=== PATIENT | female | born 2000 | race Caucasian/White ===

== ENCOUNTER 2023-02-16 19:27 | Inpatient (IN) | payer OTHER, MEDICAID, SELFPAY ==
[2023-02-16 19:35] VITALS: BP 123/80; PULSE 104; RESP 18; TEMP 36.8; O2SAT 98; BMI 22.9
--- NOTE | 2023-02-16 19:44 | ED_ITS ---
HPI - General Adult General Chief complaint: Psychiatric Symptoms Stated complaint: phys eval? Time Seen by Provider: 02/16/23 20:11 Source: patient Mode of arrival: ambulatory History of Present Illness HPI narrative: 22-year-old female who is a student at [employer] and currently visiting at home, comes in with cutting after a recent break-up. Patient has thoughts of self-harm and states that this is not the 1st time that she has cut or have thoughts of self-harm. She denies any AVH. Patient states that she has a local psychiatrist and is on medications but has difficulty bridging the distance when she is away at college. Her family encouraged her to present here for further evaluation. Related Data Home Medications Medication Instructions Recorded Confirmed aripiprazole 5 mg tablet 5 mg PO DAILY 02/16/23 02/16/23 dexmethylphenidate 5 mg 5 mg PO QAM 02/16/23 02/16/23 capsule,extended release -04 dexmethylphenidate 5 mg tablet 5 mg PO BID PRN Agitation 02/16/23 02/16/23 drospirenone 3 mg-ethinyl 1 tab PO DAILY 02/16/23 02/16/23 estradiol 0.03 mg tablet (Ewa) propranolol 10 mg tablet 10 mg PO BID 02/16/23 02/16/23 venlafaxine 150 mg 150 mg PO DAILY 02/16/23 02/16/23 capsule,extended release 24 hr Allergies Allergy/AdvReac Type Severity Reaction Status Date / Time minocycline Allergy Hives Verified 02/16/23 19:46 Review of Systems 2 Review of Systems: Pertinent positives and negatives as stated in the [facility] Past Medical History Source: nursing notes reviewed Onset Date is defined in the Problem List Problems that require an onset date and time if occurred within 24 hrs of arrival to the ED Aortic Dissection and Rupture; Neurologic impairment; Cardiopulmonary Arrest; Endotracheal Intubation; Insertion or Replacement of Mechanical Circulatory Assist Device Social History Social History Advance Directives: No Advance Directives Information Provided: No Healthcare Proxy: No Guardian: No Physical Exam ED Vital Signs: Vital Signs - 24 hr 02/16/23 19:35 02/17/23 06:36 Temperature 98.2 F 98.3 F Pulse Rate 104 H 92 Respiratory Rate 18 15 Blood Pressure 123/80 112/72 Pulse Oximetry 98 99 Oxygen Delivery Method Room Air Room Air BMI result Body Mass Index 22.9 VITAL SIGNS: Reviewed. GENERAL: Well developed, well nourished, in no acute distress. HEAD: Normocephalic/atraumatic EYES: PERRLA, EOMI EARS: Ext canals without abnormality NOSE: Nares patent bilateral OROPHARYNX: no oral lesions noted, posterior pharynx clear NECK: Supple, no adenopathy LUNGS: Normal breath sounds. No adventitious sounds or accessory muscle use. SpO2<98> CARDIOVASCULAR: Regular rate and rhythm without noted murmurs ABDOMEN: Soft, non-tender, non-distended with bowel sounds. MUSCULOSKELETAL: No tenderness, deformities, or effusions noted on gross inspection. EXTREMITIES: No cyanosis, clubbing or edema. SKIN: Inspection of the skin reveals no rashes, superficial cuts to bilateral forearms NEUROLOGIC: Alert and oriented x 4. Strength and sensation to light touch were grossly intact x 4, cranial nerves 2-12 are grossly intact. Course Course Course Narrative: RME: 22 yold female presents to the ED for cutting herself on left arm after breakup. had suicidal thought ealirer in the day, but not presently. Labs CARE team consult palloreto. brought to POD Medical Decision Making Medical Decision Making MDM Narrative: 22-year-old female with history and clinical presentation consistent with thoughts of self-harm and demonstrating cutting due to recent break-up. I reviewed all investigations and hematologic indices significant for not and back she is leukocytosis and otherwise no anemia/ thrombocytopenia/ left shift. Chemistry indices do not demonstrate an CHRISTINE and there are no electrolyte or liver enzyme derangements. Beta hCG is undetectable. urinalysis is negative for UTI in urine is negative. Urine toxicology and ethanol are negative. COVID-19 is negative. Patient is otherwise medically cleared for further evaluation by the crisis team. Patient placed in physician observation because the patient needed more time for evaluation by the care team. At the time observation was started the patient's vital signs were stable, patient is alert and oriented, neuro: Nonfocal, CV RRR, lungs clear CARE evaluated the patient, [id number], inpatient bed search Differential Diagnosis Differential Diagnoses: The differential diagnosis associated with the presentation includes please see the discussion above Admission/Observation Consideration of admission/observation: Escalation of care including admission/observation considered please see the discussion above Consult Healthcare Provider Management of the patient was discussed with: Prototype Engineer please see the discussion above Lab Data MDM Lab Attestation statement: I reviewed the patient's lab results. please see the discussion above 02/16/23 20:03 02/16/23 20:03 Labs: Lab Results 02/16/23 02/16/23 Range/Units 20:03 20:59 WBC 11.5 H (4.8-10.8) X10*3/uL RBC 4.65 (4.20-5.50) X10*6/uL Hgb 13.1 (12.0-16.0) g/dl Hct 38.2 (37.0-47.0) % MCV 82.2 (80.0-98.0) fL MCH 28.2 (27.0-33.0) pg MCHC 34.3 (31.0-35.0) g/dl RDW 12.4 (11.0-16.0) % Plt Count 356 (160-400) X10*3/uL MPV 10.0 (9.4-12.3) fL Immature Gran % (Auto) 0.3 (0.0-0.4) % Neut % (Auto) 58.5 (45-73) % Lymph % (Auto) 29.7 (20-40) % [place] % (Auto) 8.9 (2-11) % Eos % (Auto) 1.6 (0-4) % Baso % (Auto) 1.0 (0-2) % Lymph # (Auto) 3.4 (1.2-4.9) X10*3/uL [place] # (Auto) 1.0 (0.1-1.2) X10*3/uL Eos # (Auto) 0.2 (0.0-0.4) X10*3/uL Baso # (Auto) 0.1 (0.0-0.2) X10*3/uL Abs Immat Gran (auto) 0.03 (0.00-0.03) X10*3/uL Absolute Neuts (auto) 6.7 (2.0-8.3) x10*3/uL Absolute Nucleated RBC 0.000 (0.0-0.012) X10*3/uL Nucleated RBC % (auto) 0.0 (0.0-0.2) /100WBC Sodium 139 (135-145) mmol/L Potassium 3.4 (3.3-5.1) mmol/L Chloride 107 (96-108) mmol/L Carbon Dioxide 20 L (22-29) mmol/L Anion Gap 15 (12-20) BUN 12 (9-16) mg/dL Creatinine 0.65 (0.5-1.4) mg/dL Estim Creat Clear Calc 109.1 Estimated GFR > 60 Random Glucose 94 (60-115) mg/dL Calcium 9.4 (8.4-10.2) mg/dL Total Bilirubin 0.2 (0.0-1.0) mg/dL AST 11 (5-31) U/L ALT 8 (0-31) U/L Alkaline Phosphatase 62 (39-117) U/L Total Protein 7.1 (6.5-8.0) g/dL Albumin 4.0 (3.5-5.0) g/dL Beta HCG, Quant < 2 mIU/mL Urine Color Yellow Urine Appearance Cloudy Urine pH 6.0 (5.0-9.0) Ur Specific [place] 1.025 (1.005-1.025) Urine Protein Negative (Neg-Trace) mg/dL Urine Glucose (UA) Negative (Negative) mg/dL Urine Ketones Negative (Negative) mg/dL Urine Blood Large (3+) H (Negative) Urine Nitrite Negative (Negative) Ur Leukocyte Esterase Negative (Negative) Urine RBC 11-20 H (0-2) /HPF Urine WBC 0-5 (0-5) /HPF Ur Squamous Epith Cells 6-10 (0-2) /HPF Urine Bacteria Trace (None Seen) Hyaline Casts 0-2 (0-2) /LPF Urine Test NEGATIVE (NEGATIVE) Urine Opiates Screen Not Detected (Not Detect) Urine Fentanyl Screen Not Detected (Not Detect) Ur Barbiturates Screen Not Detected (Not Detect) Ur Phencyclidine Scrn Not Detected (Not Detect) Ur Amphetamines Screen Not Detected (Not Detect) U Benzodiazepines Scrn Not Detected (Not Detect) Urine Cocaine Screen Not Detected (Not Detect) U Marijuana (THC) Screen Not Detected (Not Detect) Ethyl Alcohol < 10 mg/dL COVID-19 (LUIS MANUEL) Negative (Negative) COVID-19 Clin Com See Note Critical Care Time Critical Care Time Critical Care Time: Yes Total Critical Care Time: 30 Attestation: I personally attest to this time spent taking care of the patient. Discharge Plan Discharge Clinical Impression: Deliberate self-cutting, Suicidal ideation Patient Disposition: Still a Patient Prescriptions: No Action venlafaxine 150 mg capsule,extended release 24hr 150 mg PO DAILY dexmethylphenidate 5 mg tablet 5 mg PO BID PRN (Reason: Agitation) propranolol 10 mg tablet 10 mg PO BID drospirenone-ethinyl estradiol [Ewa] 3-0.03 mg tablet 1 tab PO DAILY aripiprazole 5 mg tablet 5 mg PO DAILY dexmethylphenidate 5 mg capsule,ER biphasic 50-50 5 mg PO QAM Interventions: [place]-Suicide Risk Severity Scale Last Done: 02/16/23 20:27
[2023-02-16 20:08] LABS: MANUAL DIFF FLAG NO
[2023-02-16 20:11] LABS: Basophils Absolute Auto 0.1 X10*3/uL (0.0-0.2); Eosinophils Absolute Auto 0.2 X10*3/uL (0.0-0.4); Eosinophils Percent Auto 1.6 % (0-4); Hematocrit 38.2 % (37.0-47.0); Hemoglobin 13.1 g/dl (12.0-16.0); Imm Gran Abs Auto 0.03 X10*3/uL (0.00-0.03); Imm Gran Pct Auto 0.3 % (0.0-0.4); Lymphocytes Absolute Auto 3.4 X10*3/uL (1.2-4.9); Lymphocytes Percent Auto 29.7 % (20-40); Mean Corpuscular HGB Conc 34.3 g/dl (31.0-35.0); Mean Corpuscular Hemoglobin 28.2 pg (27.0-33.0); Mean Corpuscular Volume 82.2 fL (80.0-98.0); Monocytes Percent Auto 8.9 % (2-11); Neutrophils Absolute Auto 6.7 x10*3/uL (2.0-8.3); Neutrophils Percent Auto 58.5 % (45-73); Platelet Count 356 X10*3/uL (160-400); Red Blood Count 4.65 X10*6/uL (4.20-5.50); Red Cell Distribution Width 12.4 % (11.0-16.0); White Blood Count 11.5 X10*3/uL (4.8-10.8)
[2023-02-16 20:25] LABS: COVID-19 Test Negative (Negative); IDNOW Serial# 6674DD1D
[2023-02-16 20:30] LABS: Alanine Aminotransferase 8 U/L (0-31); Alkaline Phosphatase 62 U/L (39-117); Anion Gap 15 (12-20); Aspartate Amino Transferase 11 U/L (5-31); Bilirubin Total 0.2 mg/dL (0.0-1.0); Blood Urea Nitrogen 12 mg/dL (9-16); Calcium 9.4 mg/dL (8.4-10.2); Carbon Dioxide 20 mmol/L (22-29); Chloride 107 mmol/L (96-108); Creatinine Clr Calc Pharmacy 109.1; Estimated Glomerular Filt Rate > 60; Ethanol < 10 mg/dL; Glucose Random 94 mg/dL (60-115); HCG Quantitative < 2 mIU/mL; Potassium 3.4 mmol/L (3.3-5.1); Sodium 139 mmol/L (135-145); Total Protein 7.1 g/dL (6.5-8.0)
[2023-02-16 21:09] LABS: Appearance Urine Cloudy; Color Urine Yellow; Glucose Urine UA Negative (Negative); Leukocyte Esterase Urine Negative (Negative); Nitrite Urine Negative (Negative); Specific Gravity - Urine 1.025 (1.005-1.025); UMIC TRIGGER UACC YES; Urine Blood Large (3+) (Negative); Urine Ketones Negative (Negative); Urine Protein Negative (Neg-Trace)
[2023-02-16 21:11] LABS: UPreg QC Valid YES; Urine Pregnancy NEGATIVE (NEGATIVE)
[2023-02-16 21:14] LABS: Bacteria Urine Trace (None Seen); Hyaline Casts Urine 0-2 /LPF (0-2); WBC Urine 0-5 /HPF (0-5)
[2023-02-16 21:16] LABS: Amphetamine Screen Urine Not Detected (Not Detect); Barbiturates, Urine Not Detected (Not Detect); Benzodiazepines Screen Urine Not Detected (Not Detect); Cannabinoid Screen Urine Not Detected (Not Detect); Cocaine Screen Urine Not Detected (Not Detect); Fentanyl, urine Not Detected (Not Detect); Opiate Screen Urine Not Detected (Not Detect); Phencyclidine Screen Urine Not Detected (Not Detect)
--- NOTE | 2023-02-16 23:28 | PC.NURSE ---
father called and asked t/w about details of section 12...t/w explained. father asked me to explain to daughter, which i did. client not truly receptive to this information. client offered medication, expressed no interest.
--- NOTE | 2023-02-17 03:21 | PC.NURSE ---
assumed care of pt at this time. pt sleeping in room resp even and unlabored.
[2023-02-17 06:36] VITALS: BP 112/72; PULSE 92; RESP 15; TEMP 36.8; O2SAT 99
--- NOTE | 2023-02-17 08:44 | PC.NURSE ---
Pt ambulatory around unit. using phone to call parents. pt very upset about having to wait for inpatient bed. RN spoke to pt's father over the phone who also has a lot of questions about length of stay and legality regarding section 12. RN asked care team to call father as I am not able to answer all his questions. care team also at bedside speaking to patient.
--- NOTE | 2023-02-17 08:55 | PC.NURSE ---
Med list provided by pt's father over the phone sent to pharmacist for reconciliation
[2023-02-17] MEDS: LORazepam 0.5 MG TABLET PO ×2 (08:58→15:52)
--- NOTE | 2023-02-17 09:27 | PHA.MEDREC ---
Pharmacy Consult ? Medication Reconciliation Pharmacy has completed the medication reconciliation. PDMP reports last fill for ativan was 12/2021, 30 tabs for a 10 DS. Father reported that patient still uses PRN.
[2023-02-17 10:12] LABS: Acetaminophen LAB < 3 mcg/mL (<30); Salicylate < 5.0 mg/dL (15-30)
[2023-02-17] MEDS: ARIPiprazole 5 MG TABLET PO (11:28)
[2023-02-17] MEDS: Venlafaxine HCl ER 150 MG CAP.ER.24H PO (11:28)
--- NOTE | 2023-02-17 13:30 | PC.NURSE ---
Meal provided. Mom at bedside visiting.
[2023-02-17 15:00] VITALS: BP 117/75; PULSE 101; TEMP 36.6; O2SAT 98
--- NOTE | 2023-02-17 15:21 | PC.ADMIT ---
Anny is a 22-year-old female admitted from [facility] to M3 on a CV for treatment of major depressive disorder, panic disorder and ADHD. Pt immediately signed 3 day upon arrival to the unit. Tox screen negative. Pt recently broke up with her significant other last week and has been crying, screaming and having severe panic attacks. Pt was also cutting herself with scissors. During admission assessment, pt was tearful and regretted her behavior and asked to be discharged. Mood is depressed with congruent affect. Pt is alert and oriented x4 and has insight into situation and diagnosis. Skin check complete, pt has multiple superficial lacerations on her bilateral arms. Pt reports a hx of anorexia and has lost her appetite since the breakup. Pt endorses occasional marijuana use but denies alcohol and other substances. Pt denies SI/HI/AH/VH but will reach out to staff if thoughts occur. Pt placed on 15 minute safety checks.
--- NOTE | 2023-02-17 15:50 | PC.NURSE ---
pt refused flu vaccine, has already been immunized
[2023-02-18 06:00] VITALS: BP 115/68; PULSE 107; RESP 16; TEMP 36.9; O2SAT 97
[2023-02-18 07:00] VITALS: BMI 23.2
[2023-02-18] MEDS: Venlafaxine HCl ER 150 MG CAP.ER.24H PO (09:11)
[2023-02-18] MEDS: ARIPiprazole 5 MG TABLET PO (09:11)
[2023-02-18] MEDS: LORazepam 0.5 MG TABLET PO (09:19)
--- NOTE | 2023-02-18 09:49 | P.HPPS_ITS ---
HPI Date of Service: 02/18/23 Chief Complaint: SI/SIB Sources of Information: patient interviewed, chart reviewed and crisis/core team assessment reviewed Additional Sources of Information: Pt's father, Carlos Mcleod. HPI Subjective Notes: Silvestre Warning and Conditional Voluntary Narrative: Patient is a 22 year old female with hx of MDD and ADHD who was brought into ER by her parents d/t self harming behavior (cutting) secondary to panic attacks after breakup with partner. Per crisis report, patients partner broke up with her last week which has caused patient to have panic attacks. Parents reported pt began cutting her arms superficially with scissors. Pt denied trying to end her life; she reports intrusive suicidal thoughts and panic attacks since break up. denies any problems with sleep or appetite. Hx of anorexia and hanging at age 16 but she reports has been receiving treatment and has been fine ever since. During admission assessment, pt present calm, cooperative and friendly. Pt stated, I got broken up with a week ago. It was my first relationship. I got really angry a few nights ago and hurt myself with scissors. I immediately regretted doing it. My parents freaked out when they saw and brought me here but now they want me to leave the hospital . Patient reports she has not cut since I was 16 ; pt stated, I'm not suicidal. I haven't been suicidal since I was 16 years old. I have a therapist and I'm going to start a DBT program. I don't think I need to be in here. I'm trying to work on my emotional regulation and I have a lot of supports outside of here . Observed superficial cuts on forearm. denies SI/HI/VH/AH. T/W met with patient's father, Carlos and patient together. Carlos strongly advocated for patient to be discharged into his care. Pt's father stated, I think we shouldn't have brought her to the hospital. She is not suicidal. She's not going to hurt herself again. 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 I'm going to bring her to see her therapist and have her psychiatrist look at her medications . Past Psychiatric History: Therapist: Reva Mckeon Prescriber: Ellen Murguia Suicide attempt by hanging and trying to starve herself when 16 y/o around her parents divorce. Attended [facility]. Anorexia at age 16. Medical Evaluation Reviewed: Hospitalist Tristin Pending [facility] Family History: two cousins with bipolar d/o Social History: Lives with father who is a retired physician when home. Attends [employer] for music therapy. Tutors other students for work. Substance History: denies Trauma History: yes Diagnostics Vital Signs (24Hr): Vital Signs - 24 hr 02/17/23 15:00 02/18/23 06:00 Temperature 97.9 F 98.4 F Pulse Rate 101 H 107 H Respiratory Rate 16 Blood Pressure 117/75 115/68 Pulse Oximetry 98 97 Oxygen Delivery Method Room Air Room Air BMI result Body Mass Index 22.9 Labs 02/16/23 20:03 02/16/23 20:03 Labs: Laboratory Results - last 48 hr 02/16/23 02/16/23 02/17/23 20:03 20:59 09:48 WBC 11.5 H RBC 4.65 Hgb 13.1 Hct 38.2 MCV 82.2 MCH 28.2 MCHC 34.3 RDW 12.4 Plt Count 356 MPV 10.0 Immature Gran % (Auto) 0.3 Neut % (Auto) 58.5 Lymph % (Auto) 29.7 [place] % (Auto) 8.9 Eos % (Auto) 1.6 Baso % (Auto) 1.0 Lymph # (Auto) 3.4 [place] # (Auto) 1.0 Eos # (Auto) 0.2 Baso # (Auto) 0.1 Abs Immat Gran (auto) 0.03 Absolute Neuts (auto) 6.7 Absolute Nucleated RBC 0.000 Nucleated RBC % (auto) 0.0 Sodium 139 Potassium 3.4 Chloride 107 Carbon Dioxide 20 L Anion Gap 15 BUN 12 Creatinine 0.65 Estim Creat Clear Calc 109.1 Estimated GFR > 60 Random Glucose 94 Calcium 9.4 Total Bilirubin 0.2 AST 11 ALT 8 Alkaline Phosphatase 62 Total Protein 7.1 Albumin 4.0 Beta HCG, Quant < 2 Urine Color Yellow Urine Appearance Cloudy Urine pH 6.0 Ur Specific [place] 1.025 Urine Protein Negative Urine Glucose (UA) Negative Urine Ketones Negative Urine Blood Large (3+) H Urine Nitrite Negative Ur Leukocyte Esterase Negative Urine RBC 11-20 H Urine WBC 0-5 Ur Squamous Epith Cells 6-10 Urine Bacteria Trace Hyaline Casts 0-2 Urine Test NEGATIVE Salicylates < 5.0 L Urine Opiates Screen Not Detected Urine Fentanyl Screen Not Detected Acetaminophen < 3 Ur Barbiturates Screen Not Detected Ur Phencyclidine Scrn Not Detected Ur Amphetamines Screen Not Detected U Benzodiazepines Scrn Not Detected Urine Cocaine Screen Not Detected U Marijuana (THC) Screen Not Detected Ethyl Alcohol < 10 COVID-19 (LUIS MANUEL) Negative COVID-19 Clin Com See Note Meds/Allergies Meds Home Medications Medication Instructions Recorded Confirmed Type aripiprazole 5 mg tablet 5 mg PO DAILY 02/16/23 02/16/23 History dexmethylphenidate 5 mg 5 mg PO QAM 02/16/23 02/16/23 History capsule,extended release [id number] dexmethylphenidate 5 mg tablet 5 mg PO BID PRN Agitation 02/16/23 02/16/23 History drospirenone 3 mg-ethinyl 1 tab PO DAILY 02/16/23 02/16/23 History estradiol 0.03 mg tablet (Ewa) propranolol 10 mg tablet 10 mg PO DAILY PRN Anxiety 02/16/23 02/17/23 History venlafaxine 150 mg 150 mg PO DAILY 02/16/23 02/16/23 History capsule,extended release 24 hr lorazepam 0.5 mg tablet (Ativan) 0.5 mg PO TID PRN Anxiety 02/17/23 02/17/23 History Allergies Allergies Allergy/AdvReac Type Severity Reaction Status Date / Time minocycline Allergy Hives Verified 02/16/23 19:46 Mental Status Exam Mental Status Exam Narrative: Pt is alert and oriented; behavior is cooperative, friendly and calm; dressed in casual attire; mood is described as good ; eye contact appropriate; Speech is normal rate, volume and prosody and not pressured; thought process is organized; Thought content is on tx; otherwise pertinent to relevant topics and without any delusional content, paranoid ideations or grandiosity; denies SI/HI/VH/AH. Assessment & Plan Assessment & Plan (1) MDD (major depressive disorder), recurrent episode: Status: Acute Code(s): F33.9 - Major depressive disorder, recurrent, unspecified (2) ADHD: Status: Acute Code(s): F90.9 - Attention-deficit hyperactivity disorder, unspecified type Plan Patient is a 22 year old female with hx of MDD and ADHD who was brought into ER by her parents d/t self harming behavior (cutting) secondary to panic attacks after breakup with partner. Per crisis report, patients partner broke up with her last week which has caused patient to have panic attacks. Parents reported pt began cutting her arms superficially with scissors. Pt denied trying to end her life; she reports intrusive suicidal thoughts and panic attacks since break up. denies any problems with sleep or appetite. Hx of anorexia and hanging at age 16 but she reports has been receiving treatment and has been fine ever since. During admission assessment, pt present calm, cooperative and friendly. Pt stated, I got broken up with a week ago. It was my first relationship. I got really angry a few nights ago and hurt myself with scissors. I immediately regretted doing it. My parents freaked out when they saw and brought me here but now they want me to leave the hospital . Patient reports she has not cut since I was 16 ; pt stated, I'm not suicidal. I haven't been suicidal since I was 16 years old. I have a therapist and I'm going to start a DBT program. I don't think I need to be in here. I'm trying to work on my emotional regulation and I have a lot of supports outside of here . Observed superficial cuts on forearm. denies SI/HI/VH/AH. T/W met with patient's father, Carlos and patient together. Carlos strongly advocated for patient to be discharged into his care. Pt's father stated, I think we shouldn't have brought her to the hospital. She is not suicidal. She's not going to hurt herself again. 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 I'm going to bring her to see her therapist and have her psychiatrist look at her medications . Plan: DC patient home to [facility] care and follow up with outpatient providers. Patient educated on: diagnosis, medication risk/benefits and therapeutic strategies Guardian/Caregiver educated on: diagnosis, medication risk/benefits and therapeutic strategies Informed Consent: understands Reason for continued inpatient stay Substantial Risk for: stable for discharge Statement Statement: I have reviewed the history and physical and performed a pertinent examination on my patient. No changes have occurred unless specified. If the History and Physical was not performed prior to admission, the Hospitalist's service will be consulted for completing the admission physical. Time Spent With Patient Time: Total time managing care of this patient today _60___ minutes.
--- NOTE | 2023-02-18 16:26 | PM.PSYDC ---
DS: Providers Provider Date of Service: 02/18/23 Date of admission: 02/17/23 13:49 Date of discharge: 02/18/23 Primary care physician: Chris Huynh MD Admitting clinician: Kathy Edwards Attending physician on admission: Kyle Gillis Attending physician on discharge: Kyle Gillis Discharging clinician: Kathy Edwards DS: Diagnosis Discharge Diagnosis (1) MDD (major depressive disorder), recurrent episode: Status: Acute (2) ADHD: Status: Acute DS: Medications Discharge Medications Home Medications: Home Medications Medication Instructions Recorded Confirmed aripiprazole 5 mg tablet 5 mg PO DAILY 02/16/23 02/16/23 dexmethylphenidate 5 mg 5 mg PO QAM 02/16/23 02/16/23 capsule,extended release [id number] dexmethylphenidate 5 mg tablet 5 mg PO BID PRN Agitation 02/16/23 02/16/23 drospirenone 3 mg-ethinyl 1 tab PO DAILY 02/16/23 02/16/23 estradiol 0.03 mg tablet (Ewa) propranolol 10 mg tablet 10 mg PO DAILY PRN Anxiety 02/16/23 02/17/23 venlafaxine 150 mg 150 mg PO DAILY 02/16/23 02/16/23 capsule,extended release 24 hr lorazepam 0.5 mg tablet (Ativan) 0.5 mg PO TID PRN Anxiety 02/17/23 02/17/23 Mental Status Exam Mental Status Exam Narrative: Pt is alert and oriented; behavior is cooperative, friendly and calm; dressed in casual attire; mood is described as good ; eye contact appropriate; Speech is normal rate, volume and prosody and not pressured; thought process is organized; Thought content is on tx; otherwise pertinent to relevant topics and without any delusional content, paranoid ideations or grandiosity; denies SI/HI/VH/AH. Data Data Completed and Pending Completed studies during hospitalization [Text1]: 02/16/23 02/16/23 02/17/23 20:03 20:59 09:48 WBC 11.5 H RBC 4.65 Hgb 13.1 Hct 38.2 MCV 82.2 MCH 28.2 MCHC 34.3 RDW 12.4 Plt Count 356 MPV 10.0 Immature Gran % (Auto) 0.3 Neut % (Auto) 58.5 Lymph % (Auto) 29.7 [place] % (Auto) 8.9 Eos % (Auto) 1.6 Baso % (Auto) 1.0 Lymph # (Auto) 3.4 [place] # (Auto) 1.0 Eos # (Auto) 0.2 Baso # (Auto) 0.1 Abs Immat Gran (auto) 0.03 Absolute Neuts (auto) 6.7 Absolute Nucleated RBC 0.000 Nucleated RBC % (auto) 0.0 Sodium 139 Potassium 3.4 Chloride 107 Carbon Dioxide 20 L Anion Gap 15 BUN 12 Creatinine 0.65 Estim Creat Clear Calc 109.1 Estimated GFR > 60 Random Glucose 94 Calcium 9.4 Total Bilirubin 0.2 AST 11 ALT 8 Alkaline Phosphatase 62 Total Protein 7.1 Albumin 4.0 Beta HCG, Quant < 2 Urine Color Yellow Urine Appearance Cloudy Urine pH 6.0 Ur Specific [place] 1.025 Urine Protein Negative Urine Glucose (UA) Negative Urine Ketones Negative Urine Blood Large (3+) H Urine Nitrite Negative Ur Leukocyte Esterase Negative Urine RBC 11-20 H Urine WBC 0-5 Ur Squamous Epith Cells 6-10 Urine Bacteria Trace Hyaline Casts 0-2 Urine Test NEGATIVE Salicylates < 5.0 L Urine Opiates Screen Not Detected Urine Fentanyl Screen Not Detected Acetaminophen < 3 Ur Barbiturates Screen Not Detected Ur Phencyclidine Scrn Not Detected Ur Amphetamines Screen Not Detected U Benzodiazepines Scrn Not Detected Urine Cocaine Screen Not Detected U Marijuana (THC) Screen Not Detected Ethyl Alcohol < 10 COVID-19 ([facility]) Negative COVID-19 Clin Com See Note DS: Summary Hospital Course Hospital Course: Patient is a 22 year old female with hx of MDD and ADHD who was brought into ER by her parents d/t self harming behavior (cutting) secondary to panic attacks after breakup with partner. Per crisis report, patients partner broke up with her last week which has caused patient to have panic attacks. Parents reported pt began cutting her arms superficially with scissors. Pt denied trying to end her life; she reports intrusive suicidal thoughts and panic attacks since break up. denies any problems with sleep or appetite. Hx of anorexia and hanging at age 16 but she reports has been receiving treatment and has been fine ever since. During admission assessment, pt present calm, cooperative and friendly. Pt stated, I got broken up with a week ago. It was my first relationship. I got really angry a few nights ago and hurt myself with scissors. I immediately regretted doing it. My parents freaked out when they saw and brought me here but now they want me to leave the hospital . Patient reports she has not cut since I was 16 ; pt stated, I'm not suicidal. I haven't been suicidal since I was 16 years old. I have a therapist and I'm going to start a DBT program. I don't think I need to be in here. I'm trying to work on my emotional regulation and I have a lot of supports outside of here . Observed superficial cuts on forearm. denies SI/HI/VH/AH. T/W met with patient's father, Carlos and patient together. Carlos strongly advocated for patient to be discharged into his care. Pt's father stated, I think we shouldn't have brought her to the hospital. She is not suicidal. She's not going to hurt herself again. 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 I'm going to bring her to see her therapist and have her psychiatrist look at her medications . Plan: DC patient home to [facility] and follow up with outpatient providers. Status at Discharge Cognitive/behavioral status at discharge: Patient was interviewed prior to discharge and found to be fully oriented and without any SI or HI. Patient has insight and demonstrates good judgment in terms of wanting to pursue treatment. Patient is not in imminent risk of harm to self or others and has a safety plan that includes presenting to the closest ER or calling 911 if feeling unsafe. Patient has been observed closely by nursing and unit staff throughout admission. Functional status at discharge: independent ambulation Overall status at discharge: patient is back to baseline Time Spent with Patient Time attestation: Total time managing care of this patient today _20___ minutes. Time spent: Less than 30 minutes Discharge Plan Discharge Anticipated Discharge Date/Time: 02/18/23 12:31 Patient Disposition: Home, Self-Care Discharge Diagnosis: MDD, ADHD Referrals: Chris Huynh MD [Primary Care Provider] - 1 Week Discharge Medications: Continued venlafaxine 150 mg capsule,extended release 24hr 150 mg PO DAILY dexmethylphenidate 5 mg tablet 5 mg PO BID PRN (Reason: Agitation) propranolol 10 mg tablet 10 mg PO DAILY PRN (Reason: Anxiety) drospirenone-ethinyl estradiol [Ewa] 3-0.03 mg tablet 1 tab PO DAILY aripiprazole 5 mg tablet 5 mg PO DAILY dexmethylphenidate 5 mg capsule,ER biphasic 50-50 5 mg PO QAM lorazepam [Ativan] 0.5 mg Tablet 0.5 mg PO TID PRN (Reason: Anxiety) Discharge Orders: Discharge Order (Routine); Ordered 02/18/23 Ordered By: Kathy Edwards Diet: Regular diet Activity on Discharge: As tolerated Stand Alone Forms: Patient Portal Discharge page, Community Support Care Plan Goals: Maintain mood and safe behaviors Take medications as prescribed Practice coping skills Continue with outpatient providers and reach out to them as needed Health Concerns: Mood stability and behaviors Plan of Treatment: Follow up with your PCP, psychiatric provider and other outpatient providers regarding above concerns Take medications as prescribed Assessment: Patient was interviewed prior to discharge and found to be fully oriented and without any SI or HI. Patient has insight and demonstrates good judgment in terms of wanting to pursue treatment. Patient is not in imminent risk of harm to self or others and has a safety plan that includes presenting to the closest ER or calling 911 if feeling unsafe. Patient has been observed closely by nursing and unit staff throughout admission; patient has not engaged in any behaviors that suggest dangerousness to self or others and has demonstrated appropriate behaviors and impulse control. Discharge Date/Time: 02/18/23 12:55
== END 2023-02-18 12:55 | disposition home or self-care (01) | DRG 751 ==
LOC: HO.ED 22:18 → HO.PADLT16 02-17 13:56
PROVIDERS: Emergency Medicine; Physician Assistant; Admitting Provider Psychiatry & Neurology Psychiatry; Emergency Provider Student in an Organized Health Care Education/Training Program; PCP Family Medicine; Responsible Provider Registered Nurse; Visit Provider Psychiatry & Neurology Psychiatry
DX: F33.9 Major depressive disorder, recurrent, unspecified (principal); R45.851 Suicidal ideations; F90.9 Attention-deficit hyperactivity disorder, unspecified type; Z20.822 Contact with and (suspected) exposure to COVID-19; Z91.52 Personal history of nonsuicidal self-harm; Z91.51 Personal history of suicidal behavior; Z79.899 Other long term (current) drug therapy
CPT/HCPCS: 36415; 80053; 80143; 80179; 80307; 81001; 81025; 84702; 85025; 87635; 99285; S9485

== ENCOUNTER → 2023-02-17 13:49 | Outpatient (BNV) | payer OTHER, SELFPAY | PROVIDERS: Admitting Provider Psychiatry & Neurology Psychiatry; Emergency Provider Student in an Organized Health Care Education/Training Program; PCP Family Medicine; Responsible Provider Registered Nurse; Visit Provider Registered Nurse | DX: F33.2 Major depressive disorder, recurrent severe without psychotic features (principal); F90.9 Attention-deficit hyperactivity disorder, unspecified type | CPT/HCPCS: 90792; 99499 ==